=== PATIENT | female | born 1960 | race Caucasian/White ===

== ENCOUNTER → 2019-06-09 09:45 | Outpatient (CLI) | payer OTHER, SELFPAY ==
--- NOTE | ~2019-06-09 | MM_ITS ---
EXAMINATION: MM screening anne BI w dagmar HISTORY: Screening mammogram TECHNIQUE: Craniocaudal and mediolateral oblique 3-D tomosynthesis images were obtained and synthetic 2-D images were generated. CAD analysis was submitted and interpreted. COMPARISON: 12/31/2017 bilateral digital screening mammogram 11/25/2012 bilateral diagnostic digital mammogram and bilateral breast ultrasound 10/21/2012 bilateral digital screening mammogram BREAST PARENCHYMAL COMPOSITION: There are scattered areas of fibroglandular density. FINDINGS: Occasional bilateral benign calcifications. There is no evidence of suspicious mass, calcif ication, or architectural distortion to suggest malignancy in either breast. There has been no suspic ious interval change. IMPRESSION: 1. No mammographic evidence of malignancy. 2. Recommend routine screening mammography in one year. BI-RADS Category 2: Benign finding(s). Reviewed, dictated and finalized at location A. [facility]
== END ==
DX: Z12.31 Encounter for screening mammogram for malignant neoplasm of breast (principal)
CPT/HCPCS: 77063; 77067

== ENCOUNTER → 2020-11-16 08:16 | Outpatient (CLI) | payer OTHER, SELFPAY ==
--- NOTE | ~2020-11-16 | MM_ITS ---
EXAMINATION: MM screening anne BI w dagmar HISTORY: Screening mammogram TECHNIQUE: Craniocaudal and mediolateral oblique 3-D tomosynthesis images were obtained and synthetic 2-D images were generated. CAD analysis was submitted and interpreted. COMPARISON: Numerous , 12/31/2017 bilateral digital screening mammogram examinations BREAST PARENCHYMAL COMPOSITION: There are scattered areas of fibroglandular density. FINDINGS: Scattered bilateral benign calcifications. There is no evidence of suspicious mass, calcifi cation, or architectural distortion to suggest malignancy in either breast. There has been no suspici ous interval change. IMPRESSION: 1. No mammographic evidence of malignancy. 2. Recommend routine screening mammography in one year. BI-RADS Category 2: Benign finding(s). Reviewed, dictated and finalized at location A.
== END ==
DX: Z12.31 Encounter for screening mammogram for malignant neoplasm of breast (principal)
CPT/HCPCS: 77063; 77067

== ENCOUNTER → 2022-06-08 11:14 | Outpatient (CLI) | payer BC, SELFPAY ==
--- NOTE | ~2022-06-08 | MM_ITS ---
EXAMINATION: MM screening anne BI w dagmar HISTORY: Screening mammogram TECHNIQUE: Craniocaudal and mediolateral oblique 3-D tomosynthesis images were obtained and synthetic 2-D images were generated. CAD analysis was submitted and interpreted. COMPARISON: 11/12/2020, , 12/31/2017 bilateral screening mammogram examinations BREAST PARENCHYMAL COMPOSITION: There are scattered areas of fibroglandular density. FINDINGS: There is no evidence of suspicious mass, calcification, or architectural distortion to sugg est malignancy in either breast. There has been no suspicious interval change. IMPRESSION: 1. No mammographic evidence of malignancy. 2. Recommend routine screening mammography in one year. BI-RADS Category 1: Negative Reviewed, dictated and finalized at location A. [employer]
== END ==
DX: Z12.31 Encounter for screening mammogram for malignant neoplasm of breast (principal)
CPT/HCPCS: 77063; 77067

== ENCOUNTER 2023-08-10 14:45 | Outpatient (CLI) | payer BC, SELFPAY ==
--- NOTE | ~2023-08-10 | MM_ITS ---
EXAMINATION: MM screening anne BI w dagmar HISTORY: Screening TECHNIQUE: Craniocaudal and mediolateral oblique 3-D tomosynthesis images were obtained and synthetic 2-D images were generated. CAD analysis was submitted and interpreted. COMPARISON: Comparison to multiple prior studies sequentially, with oldest reviewed study dated 11/16. BREAST PARENCHYMAL COMPOSITION: Not dense: There are scattered areas of fibroglandular density. FINDINGS: There are developing asymmetries in the lower outer quadrant of the right breast and upper outer quadrant of the left breast. IMPRESSION: 1. Developing bilateral breast asymmetries. 2. Additional mammographic views and possible breast ultrasound are recommended. BI-RADS CATEGORY 0 - INCOMPLETE STUDY, NEED ADDITIONAL IMAGING EVALUATION. Reviewed, dictated and finalized at location B. IMPRESSION: 1. Developing bilateral breast asymmetries. 2. Additional mammographic views and possible breast ultrasound are recommended . BI-RADS CATEGORY 0 - INCOMPLETE STUDY, NEED ADDITIONAL IMAGING EVALUATION.
== END 2023-08-10 14:46 ==
LOC: MICIMG 14:47
DX: Z12.31 Encounter for screening mammogram for malignant neoplasm of breast (principal); R92.8 Other abnormal and inconclusive findings on diagnostic imaging of breast
CPT/HCPCS: 77063; 77067

== ENCOUNTER 2023-10-08 08:39 | Outpatient (CLI) | payer BC, SELFPAY ==
--- NOTE | ~2023-10-08 | MMUS_ITS ---
EXAMINATION: MM diagnostic anne BI w dagmar, US breast BI limited HISTORY: Follow-up bilateral breast asymmetries TECHNIQUE: Additional 3-D tomosynthesis images of the breasts were performed and synthetic 2-D images were generated. CAD analysis was submitted and interpreted. High resolution limited bilateral breast ultrasound was performed. COMPARISON: Comparison to multiple prior studies sequentially, with oldest reviewed study dated 10/2017. BREAST PARENCHYMAL COMPOSITION: Not dense: There are scattered areas of fibroglandular density. FINDINGS: MAMMOGRAPHIC FINDINGS: There is an oval-shaped mass laterally in the right breast, middle third which is slightly larger adriana n on prior examinations. The focal asymmetries in the left breast are less apparent with spot julius bety and mediolateral views. There are no suspicious calcifications or architectural distortion in ei ther breast. ULTRASOUND: Limited right breast ultrasound: At 8:00, 5 cm from the nipple, there is oval hypoechoic 4 mm mass wi thout posterior features or internal vascularity. At 9:00, 8 cm from the nipple there is an oval hypo echoic mass measuring 5 mm with enhanced through transmission and no internal vascularity, likely grupo ign complicated cyst. At 10:00, 5 cm from the nipple, there is an oval hypoechoic 4 mm mass with para llel orientation, no posterior features and no internal vascularity, likely benign. Limited left breast ultrasound: At 12:00, 5 cm from the nipple, there is a focal partially calcified mass measuring 3 mm, likely corresponding to a wheal cyst seen on mammography. At 1:00, 5 cm from the nipple there is an oval hypoechoic 8mm mass with low level internal echoes, no internal vascularity and no posterior features, likely benign. At 2:00, 6 cm from the nipple, there is an oval hypoechoic mass measuring 4 mm with parallel orientation, no internal vascularity and no definite posterior feat ures, likely benign. At 3:00, 5 cm from the nipple there is an oval hypoechoic parallel oriented 6 mm mass with low level internal echoes, no posterior features and no internal vascularity, likely benig n. IMPRESSION: 1. Probable benign bilateral breast masses. 2. Recommend 6 month follow-up limited bilateral breast ultrasound. BI-RADS category 3, probably benign findings. Reviewed, dictated and finalized at location B. IMPRESSION: 1. Probable benign bilateral breast masses. 2. Recommend 6 month follow-up limited bilateral breast ultrasound. BI-RADS category 3, probably benign findings.
== END 2023-10-08 08:40 ==
LOC: MICIMG 08:40
DX: R92.8 Other abnormal and inconclusive findings on diagnostic imaging of breast (principal)
CPT/HCPCS: 76642; 77062; 77066; G0279

== ENCOUNTER 2024-04-14 08:20 | Outpatient (CLI) | payer BC, SELFPAY ==
--- NOTE | ~2024-04-14 | US_ITS ---
US breast BI limited 04/14/2024 09:08 Indication: Follow-up probable benign bilateral breast masses Procedure: High-resolution Limited bilateral breast ultrasound Comparison: 10/08/2023 Findings: Right breast: At 8:00, 5 cm from the nipple there is an oval hypoechoic mass with internal echoes juan ramon suring 5 mm. At 9:00, 8 cm from the nipple there is a 3 mm hypoechoic mass without internal vasculari ty or posterior features with slightly altered morphology compared with prior examination, although n o enlargement. At 10:00, 5 cm from the nipple there are 2 small hypoechoic cystic structures, likely is clusters of microcysts without significant change from prior study. Left breast: At 12:00, 5 cm from the nipple there is a stable 3 mm mass with layering milk of calcium and posterior shadowing, likely adenoidal cyst. At 2:00, 6 cm from the nipple there is a stable 4 mm hypoechoic mass with layering milk of calcium and posterior shadowing, also likely benign no renal c yst. At 3:00, 5 cm from the nipple there is a oval hypoechoic mass measuring 7 x 4 x 4 mm with low-le johan internal echoes, no posterior features and parallel orientation. No internal vascularity, likely benign. Impression: 1: No significant change to benign-appearing bilateral breast masses. BI-RADS CATEGORY 3-PROBABLY BENIGN FINDING RECOMMENDATION: Six-month follow-up diagnostic bilateral mammogram and Limited bilateral breast ultra sound recommended. Reviewed, dictated and finalized at location B. [employer] Impression: 1: No significant change to benign-appearing bilateral breast masses. BI-RADS CATEGORY 3-PROBABLY BENIGN FINDING RECOMMENDATION: Six-month follow-up diagnostic bilateral mammogram and Limited bilateral breast ultrasound recommended.
== END 2024-04-14 08:21 | disposition home or self-care (01) ==
LOC: MICIMG 08:21
PROVIDERS: PCP Nurse Practitioner Family; Visit Provider Nurse Practitioner Family
DX: R92.8 Other abnormal and inconclusive findings on diagnostic imaging of breast (principal)
CPT/HCPCS: 76642

== ENCOUNTER 2024-11-27 09:16 | Outpatient (CLI) | payer BC, SELFPAY ==
--- NOTE | ~2024-11-27 | MMUS_ITS ---
EXAMINATION: MM diagnostic anne BI w dagmar, US breast BI limited INDICATION: 64-year old female; follow-up probably benign bilateral breast masses. COMPARISON: 10/08/2023 TECHNIQUE: Digital breast tomosynthesis True lateral CC and MLO views of BILATERAL breasts were obta ined with computer-aided detection to assist in interpretation of the study. Bilateral focused breast ultrasound was completed. MAMMOGRAM FINDINGS: There are scattered areas of fibroglandular density. Circumscribed mass in the outer central left breast is larger in the interval. There are no other jonnathan picious masses, calcifications, architectural distortion or other abnormality in both breasts. BILATERAL BREAST ULTRASOUND FINDINGS: Right breast: A 0.53 cm circumscribed hypoechoic mass at 8:00 location 5 cm from the nipple reidentified is Unchang ed. A 0.5 cm circumscribed hypoechoic mass at 10:00 location 7 cm from the nipple. A 0.64 cm cluster of cysts at 10:00 location 5 cm from the nipple. At 10:00, 2 cm from the nipple there is a 0.4 x 0.5 x 0.5 cm circumscribed hypoechoic mass. Left breast: Multiple small cysts scattered in the left breast are unchanged. Corresponding to the mammographic finding of a mass in the outer central left breast there is a corre sponding 1 cm simple cyst at 2:00, 3 cm from the nipple. IMPRESSION: Probably benign findings in the right breast. RECOMMENDATION: Continue imaging surveillance of probably benign right breast findings with diagnostic bilateral mamm ography and right breast ultrasound in 12 months. BI-RADS 3, PROBABLY BENIGN Reviewed, dictated and finalized at location B. IMPRESSION: Probably benign findings in the right breast. RECOMMENDATION: Continue imaging surveillance of probably benign right breast findings with lee gnostic bilateral mammography and right breast ultrasound in 12 months. BI-RADS 3, PROBABLY BENIGN
== END 2024-11-27 09:17 | disposition home or self-care (01) ==
LOC: MICIMG 09:18
PROVIDERS: PCP Nurse Practitioner Family; Visit Provider Nurse Practitioner Family
DX: R92.8 Other abnormal and inconclusive findings on diagnostic imaging of breast (principal)
CPT/HCPCS: 76642; 77062; 77066; G0279